=== PATIENT | female | born 1990 | race Caucasian/White ===

== ENCOUNTER 2020-05-06 09:30 | Emergency (ER) | payer OTHER ==
[~2020-05-06 09:30] MED LIST: BACTRIM DS TAB1 EACH PO; CYMBALTA20 MG PO; DICLOFENAC SODI75 MG PO; DULOXETINE HCL60 MG PO; FIORICET1 EACH PO; FLEXERIL10 MG PO; IBUPROFEN800 MG PO; KEFLEX250 MG PO; KEFLEX500 MG PO; MEDROL 4MG DOSEP4 MG PO; METFORMIN HCL1000 MG PO; NAPROXEN500 MG PO; NORCO 5-325 TA1 EACH PO; TESSALON PERLE100 M1 PO; TIZANIDINE HCL4 MG PO; ZOFRAN4 MG SL
[2020-05-06 10:42] LABS: BILIRUBIN NEGATIVE (NEGATIVE); BLOOD 3+ Ery/uL (NEGATIVE); COLOR YELLOW (YELLOW); GLUCOSE (U) 3+ mg/dL (NORMAL); LEUKOCYTES NEGATIVE Leu/uL (NEGATIVE); NITRITE NEGATIVE (NEGATIVE); PROTEIN NEGATIVE (NEGATIVE); SPECIFIC GRAVITY 1.025 (1.001-1.030); UROBILINOGEN 0.2 mg/dL (0.2-1.0); pH 5.5 (5.0-9.0)
[2020-05-06 10:46] LABS: CLARITY CLOUDY (CLEAR)
[2020-05-06 11:01] LABS: SQUAMOUS EPITHELIAL CELLS 20-50
[2020-05-06 11:02] LABS: BASOPHIL 0.2 % (0-2); EOSINOPHIL 2.3 % (0-5); HCT 38.4 % (37.0-47.0); HGB 11.9 g/dl (12.5-16.0); LYMPHOCYTE 20.9 % (15-48); MCH 25.7 pg (25.0-31.0); MCV 82.9 fL (78.0-100.0); MONOCYTE 5.2 % (0-12); NEUTROPHIL 70.9 % (41-80); NRBC 0; PLT 355 K/uL (150-400); RBC 4.63 M/uL (4.20-5.40); RDW 14.3 % (11.5-14.0); WBC 8.4 K/uL (4.0-10.5)
[2020-05-06 11:02] LABS: BACTERIA 1+
[2020-05-06 11:54] LABS: LACTIC ACID 1.9 mmol/L (0.4-1.9)
[2020-05-06 11:55] LABS: ALBUMIN 3.2 g/dL (3.4-5.0); BILIRUBIN - TOTAL 0.1 mg/dL (0.2-1.0); BUN/CREAT RATIO (CALC) 14.8 RATIO; CREATININE 0.54 mg/dL (0.51-0.95); GLOBULIN (CALCULATION) 3.5 g/dL; TOTAL PROTEIN 6.7 g/dL (6.4-8.2)
[2020-05-06] MEDS ORDERED: PROTONIX 40MG T40 MG PO (12:28)
[2020-05-06] MEDS ORDERED: BIAXIN500 MG PO (12:28)
[2020-05-06] MEDS ORDERED: PEPCID AC20 MG PO (12:28)
[2020-05-06] MEDS ORDERED: METFORMIN HCL1000 MG PO (12:28)
== END 2020-05-06 12:48 | disposition home or self-care (01) ==
LOC: FER 09:30
PROVIDERS: Emergency Medicine
DX: K27.9 Peptic ulcer, site unspecified, unspecified as acute or chronic, without hemorrhage or perforation (principal); E11.649 Type 2 diabetes mellitus with hypoglycemia without coma; F17.200 Nicotine dependence, unspecified, uncomplicated; Z90.49 Acquired absence of other specified parts of digestive tract; Z98.890 Other specified postprocedural states
CPT/HCPCS: 36415; 80053; 81001; 83605; 83690; 85025; 87339; C9113; J2405

== ENCOUNTER 2020-07-24 22:18 | Emergency (ER) | payer OTHER ==
[~2020-07-24 22:18] MED LIST changes: +BIAXIN500 MG PO; +PEPCID AC20 MG PO; +PROTONIX 40MG T40 MG PO
[2020-07-25 00:57] LABS: BASOPHIL 0.4 % (0-2); EOSINOPHIL 2.1 % (0-5); HCT 36.1 % (37.0-47.0); HGB 11.4 g/dl (12.5-16.0); LYMPHOCYTE 24.9 % (15-48); MCH 25.9 pg (25.0-31.0); MCHC 31.6 g/dL (32.0-36.0); MONOCYTE 5.9 % (0-12); MPV 9.5 fL (6.0-9.5); NEUTROPHIL 66.3 % (41-80); NRBC 0; PLT 393 K/uL (150-400); RDW 14.8 % (11.5-14.0); WBC 13.3 K/uL (4.0-10.5)
[2020-07-25 01:13] LABS: ALBUMIN 3.5 g/dL (3.4-5.0); BILIRUBIN - TOTAL 0.3 mg/dL (0.2-1.0); BUN/CREAT RATIO (CALC) 21.9 RATIO; CREATININE 0.64 mg/dL (0.51-0.95); GLOBULIN (CALCULATION) 3.8 g/dL; POTASSIUM 3.7 mmol/L (3.5-5.1); TOTAL PROTEIN 7.3 g/dL (6.4-8.2)
[2020-07-25 01:34] LABS: BASOPHIL(M) 0 % (0-2); EOSINOPHIL(M) 4 % (0-5); LYMPHOCYTE(M) 30 % (15-48); MONOCYTE(M) 4 % (0-12); NEUTROPHILS(M) 62 % (41-80); PLATELET ESTIMATE NORMAL; PLATELET MORPHOLOGY NORMAL; TOTAL CELL COUNT 100
[2020-07-25 02:29] LABS: BILIRUBIN NEGATIVE (NEGATIVE); BLOOD NEGATIVE Ery/uL (NEGATIVE); CLARITY CLEAR (CLEAR); COLOR YELLOW (YELLOW); GLUCOSE (U) NORMAL (NORMAL); LEUKOCYTES NEGATIVE Leu/uL (NEGATIVE); NITRITE NEGATIVE (NEGATIVE); PROTEIN NEGATIVE (NEGATIVE); SPECIFIC GRAVITY >=1.030 (1.001-1.030); UROBILINOGEN 0.2 mg/dL (0.2-1.0)
[2020-07-25 02:31] LABS: HCG (URINE) SCREEN NEGATIVE (NEGATIVE)
[2020-07-25] MEDS ORDERED: PROTONIX 40MG T40 MG PO (03:24)
[2020-07-25] MEDS ORDERED: KAOPECTATE262 MG/15 PO (03:24)
[2020-07-25] MEDS ORDERED: METRONIDAZOLE500 MG PO (03:24)
[2020-07-25] MEDS ORDERED: TETRACYCLINE H500 MG PO (03:24)
[2020-07-25] MEDS ORDERED: PHENERGAN25 M1 PO (03:35)
[2020-07-25] MEDS ORDERED: PROMETHEGA12.5 MG/SU PR (03:35)
== END 2020-07-25 03:40 | disposition home or self-care (01) ==
LOC: FER 22:18
PROVIDERS: Student in an Organized Health Care Education/Training Program
DX: A04.8 Other specified bacterial intestinal infections (principal); E11.9 Type 2 diabetes mellitus without complications; F17.210 Nicotine dependence, cigarettes, uncomplicated
CPT/HCPCS: 36415; 80053; 81003; 84703; 87339; J2405; J7030

== ENCOUNTER 2021-06-03 23:54 | Emergency (ER) | payer OTHER ==
[~2021-06-03 23:54] MED LIST changes: +KAOPECTATE262 MG/15 PO; +METRONIDAZOLE500 MG PO; +PHENERGAN25 M1 PO; +PROMETHEGA12.5 MG/SU PR; +TETRACYCLINE H500 MG PO
[2021-06-04 02:32] LABS: BASOPHIL 0.3 % (0-2); EOSINOPHIL 1.5 % (0-5); HCT 35.9 % (37.0-47.0); HGB 10.8 g/dl (12.5-16.0); LYMPHOCYTE 36.3 % (15-48); MCH 24.1 pg (25.0-31.0); MCHC 30.1 g/dL (32.0-36.0); MONOCYTE 5.4 % (0-12); MPV 9.2 fL (6.0-9.5); NEUTROPHIL 56.3 % (41-80); NRBC 0; PLT 423 K/uL (150-400); RBC 4.49 M/uL (4.20-5.40); RDW 15.5 % (11.5-14.0); WBC 8.8 K/uL (4.0-10.5)
[2021-06-04 02:50] LABS: ALBUMIN 3.7 g/dL (3.4-5.0); BILIRUBIN - TOTAL 0.2 mg/dL (0.2-1.0); BUN/CREAT RATIO (CALC) 17.2 RATIO; CREATININE 0.58 mg/dL (0.51-0.95); POTASSIUM 4.3 mmol/L (3.5-5.1); TOTAL PROTEIN 7.7 g/dL (6.4-8.2)
[2021-06-04 03:04] LABS: CORONAVIRUS 2019 SARS-COV-2 NEGATIVE (NEGATIVE); INFLUENZA A NAA NEGATIVE (NEGATIVE)
== END 2021-06-04 04:10 | disposition home or self-care (01) ==
LOC: FER 23:54
PROVIDERS: Emergency Medicine
DX: R06.02 Shortness of breath (principal); E11.9 Type 2 diabetes mellitus without complications; F17.200 Nicotine dependence, unspecified, uncomplicated; Z20.822 Contact with and (suspected) exposure to COVID-19; Z79.84 Long term (current) use of oral hypoglycemic drugs
CPT/HCPCS: 36415; 71045; 80053; 83880; 84484; 85025; 85379; 93005; U0002